=== PATIENT | female | born 1965 | race Caucasian/White ===

== ENCOUNTER 2020-03-05 09:51 | Inpatient (IN) ==
[2020-03-05 10:15] LABS: BASOPHILS % (AUTO) 0.3 % (0.2-1.0); HEMATOCRIT 39.5 % (36.0-47.0); HEMOGLOBIN 13.2 g/dL (12.0-16.0); LYMPHOCYTES # (AUTO) 0.5 X10^3/uL (1.3-2.9); LYMPHOCYTES % (AUTO) 8.6 % (21.0-51.0); MEAN CORPUSCULAR HEMOGLOBIN 28.6 pg (27.0-34.0); MEAN CORPUSCULAR HGB CONC 33.4 g/dL (33.0-35.0); MEAN CORPUSCULAR VOLUME 85.7 fL (80.0-100.0); MEAN PLATELET VOLUME 7.4 fL (7.4-11.0); MONOCYTES # (AUTO) 0.1 x10^3/uL (0.3-0.8); MONOCYTES % (AUTO) 1.8 % (0.0-13.0); NEUTROPHILS # (AUTO) 5.3 x10^3/uL (2.2-4.8); NEUTROPHILS % (AUTO) 89.3 % (42.0-75.0); PLATELET COUNT 317 X10^3/uL (150.0-450.0); RED BLOOD COUNT 4.61 X10^6/uL (3.5-5.4); RED CELL DISTRIBUTION WIDTH 14.3 % (11.6-16.5); WHITE BLOOD COUNT 5.9 X10^3/uL (3.6-10.0)
[2020-03-05 10:23] LABS: ALBUMIN 2.8 g/dL (3.4-5.0); CALCIUM 9.5 mg/dL (8.5-10.1); CARBON DIOXIDE 22.7 mmol/L (21-32); COR CA(FOR HYPOALB) 10.5 mg/dL (8.5-10.1); CREATININE 1.24 mg/dL (0.55-1.02); TOTAL PROTEIN 8.4 g/dL (6.4-8.2)
[2020-03-05 10:24] LABS: ABG BASE EXCESS -8.7 mmol/L (-2.0-2.0)
[2020-03-05 10:25] LABS: ABG ALLEN TEST POS; ABG HCO3 14.5 mmol/L (22-26)
[2020-03-05] MEDS ORDERED: NS 1000 ML 1,000 ML IV ONE (10:42)
--- NOTE | 2020-03-05 10:44 | RAD ---
HISTORYShortness of breath, COVID-19STUDYChest AP portableCOMPARISONNoneFINDINGSThe heart is enlarged. No congestive heart failure is noted. Peripheral ground-glass infiltrates are present in the right upper lobe, right lower lobe, and peripherally in the left lung base. Findings are consistent with multifocal pneumonia which could be bacterial, viral, or atypical viral in etiology. COVID19 lung involvement can have this appearance. No pleural effusions are identified. Bony thorax is unremarkable.IMPRESSIONBilateral peripheral ground-glass infiltrates as described consistent with multifocal pneumonia. COVID 19 lung involvement can have this appearanceCardiomegaly without congestive heart failureElectronically signed by: RAJESH AGUILAR (Mar 05, 2020 10:43:24)
--- NOTE | 2020-03-05 10:51 | DR.SOBA ---
HPI Time Seen Time Seen by Provider: 03/05/20 10:28 HPI Comment HPI Comment: 54 yo f w/ hx of DM II and ckd. Recently seen at [facility] and treated for likely covid 19. Seen by pcp and given outpatient course of azithromycin and subsequent IM azithromycin dose. Seen in their ER and admitted 02/28/20. CTA of chest at that time w/ evidence of multifocal infiltrate. Started on iv azithro/ Rocephin. Covid 19 swab + at that time. Given steroid course. She symptomatically improved and was sent home. Represents for worsening SOB. Was not DC'd on home o2. Due to her SOB she obtained oxygen an arrived to ED today with 1L via [place]. Reviewed Nurses Notes Reviewed: Yes Source History Provided: Patient Mode of Arrival Mode of Arrival: Ambulatory Timing Onset of Chief Complaint: 02/18/20 Duration Duration: Weeks Context Onset:: At Rest PE Risk Factors:: None History of:: denies Asthma, COPD, CHF and DVT/PE Currently on:: Neither Prehospital Care:: O2 Modifying Factors Worsens:: Nothing Improves:: Nothing Associated Signs and Symptoms Associated Signs and Symptoms: Fever, Cough, Nasal Congestion and Chest Pain; denies Wheeze, Sore Throat, Hemoptysis, Calf Pain, Anxiety and Numbness If Cough Cough: Nonproductive PMH PMH Past Medical History: Hypothyroidism Past Medical History Comment: dm, htn, ckd stage 3 Past Surgical History: Yes Surgical History: Cholecystectomy and Hysterectomy Past Surgical History Comment: lithotripsy Family History History of Family Medical Conditions: No Social History Does patient currently use any type of tobacco product: No Does any household member use tobacco: No Do you use any recreational Drugs:: No ROS Review of Systems Constitutional: Chills, Fever and Fatigue Eyes: No Symptoms Reported ENTM: No Symptoms Reported Respiratoy: Non-Productive Cough and Short of Breath Cardiovascular: No Symptoms Reported Gastrointestinal/Abdominal: No Symptoms Reported Genitourinary: No Symptoms Reported Neurological: No Symptoms Reported Musculoskeletal: No Symptoms Reported Integumentary: No Symptoms Reported Hematologic/Lymphatic: No Symptoms Reported Endocrine: No Symptoms Reported Psychiatric: No Symptoms Reported All Other Systems: Reviewed and Negative PE Vital Signs Vitals: Temperature 97.6 F Pulse Rate 75 Respiratory Rate 34 Blood Pressure 167/78 O2 Sat by Pulse Oximetry 90 General Limitations: No Limitations General Appearance: Alert and In Distress (mild rd) Head Head Exam: Normal Inspection Eyes Eye exam: Normal Appearance ENT ENT Exam: Normal Exam Neck Neck Exam: Normal Inspection Chest Chest Inspection: Normal Inspection Respiratory Respiratory Exam: Respiratory Distress (mild rd); negative Accessory Muscle Use Respiratory Exam: Bilateral: Rhonchi Cardiovascular Cardiovascular Exam: Regular Rate and Normal Rhythm Abdominal Exam Abdominal Exam: Normal Inspection, Normal Bowel Sounds and Soft Extremities Extremities Exam: Normal Inspection Back Back Exam: Normal Inspection Neurologic Neurological Exam: Alert and Oriented X3 Psychiatric Psychiatric Exam: Normal Affect and Normal Mood Skin Skin Exam: Warm, Dry, Intact and Normal Color MDM Differential Diagnosis Differential Diagnosis: Asthma, Bronchitis, CHF, COPD, Pneumonia, Pneumothorax, Pulmonary embolism, Respiratory Failure and URI Differential Diagnosis Comment:: covid 19 COURSE Treatment Treatment: 54 yo f w/ hx of DM II and ckd. Recently seen at [facility] and treated for likely covid 19. Seen by pcp and given outpatient course of azithromycin and subsequent IM azithromycin dose. Seen in their ER and admitted 02/28/20. CTA of chest at that time w/ evidence of multifocal infiltrate. Started on iv azithro/ Rocephin. Covid 19 swab + at that time. Given steroid course. She symptomatically improved and was sent home. Represents for worsening SOB. Was not DC'd on home o2. Due to her SOB she obtained oxygen an arrived to ED today with 1L via [place]. On arrival to ED she was noted to be hypoxic with pulse ox in 86% range. ABG w/ evidence of hypoxemia. CBC w/ noted lymphopenia. No acidosis on cmp. Markedly elevated CRP. CXR w/ multifocal infiltrate. ROR Labs Reviewed Laboratory Results Reviewed?: Yes Result Diagrams: 03/05/20 10:07 03/05/20 10:07 Laboratory: WBC 5.9 X10^3/uL (3.6-10.0) 03/05/20 10:07 RBC 4.61 X10^6/uL (3.5-5.4) 03/05/20 10:07 Hgb 13.2 g/dL (12.0-16.0) 03/05/20 10:07 Hct 39.5 % (36.0-47.0) 03/05/20 10:07 MCV 85.7 fL (80.0-100.0) 03/05/20 10:07 MCH 28.6 pg (27.0-34.0) 03/05/20 10:07 MCHC 33.4 g/dL (33.0-35.0) 03/05/20 10:07 RDW 14.3 % (11.6-16.5) 03/05/20 10:07 Plt Count 317 X10^3/uL (150.0-450.0) 03/05/20 10:07 MPV 7.4 fL (7.4-11.0) 03/05/20 10:07 Neut % (Auto) 89.3 % (42.0-75.0) H 03/05/20 10:07 Lymph % (Auto) 8.6 % (21.0-51.0) L 03/05/20 10:07 [place] % (Auto) 1.8 % (0.0-13.0) 03/05/20 10:07 Eos % (Auto) 0.0 % (0.9-2.9) L 03/05/20 10:07 Baso % (Auto) 0.3 % (0.2-1.0) 03/05/20 10:07 Neut # (Auto) 5.3 x10^3/uL (2.2-4.8) H 03/05/20 10:07 Lymph # (Auto) 0.5 X10^3/uL (1.3-2.9) L 03/05/20 10:07 [place] # (Auto) 0.1 x10^3/uL (0.3-0.8) L 03/05/20 10:07 Eos # (Auto) 0.0 x10^3/uL (0.0-0.2) 03/05/20 10:07 Baso # (Auto) 0.0 X10^3/uL (0.0-0.1) 03/05/20 10:07 Absolute Nucleated RBC 0.0 /100WBC 03/05/20 10:07 Sample Site Rr 03/05/20 10:19 ABG pH 7.390 (7.35-7.45) 03/05/20 10:19 ABG pCO2 24.0 mmHg (35.0-45.0) L 03/05/20 10:19 ABG pO2 54.0 mmHg (80.0-100.0) L 03/05/20 10:19 ABG HCO3 14.5 mmol/L (22-26) L* 03/05/20 10:19 ABG O2 Saturation 87.0 % (90-100) L 03/05/20 10:19 ABG Base Excess -8.7 mmol/L (-2.0-2.0) L 03/05/20 10:19 Dannie Test Pos 03/05/20 10:19 A-a Gradient 66.0 mmHg 03/05/20 10:19 FiO2 21.0 03/05/20 10:19 Blood Gas Comments Sara well cb 03/05/20 10:19 Sodium 134 mmol/L (136-145) L 03/05/20 10:07 Corrected Sodium 140 mmol/L (136-145) 03/05/20 10:07 Potassium 4.5 mmol/L (3.5-5.1) 03/05/20 10:07 Chloride 96 mmol/L (98-107) L 03/05/20 10:07 Carbon Dioxide 22.7 mmol/L (21-32) 03/05/20 10:07 BUN 17 mg/dL (7-18) 03/05/20 10:07 Creatinine 1.24 mg/dL (0.55-1.02) H 03/05/20 10:07 Est GFR (MDRD) Af Amer 58 (>60) L 03/05/20 10:07 Est GFR (MDRD) Non-Af 48 (>60) L 03/05/20 10:07 Glucose 331 mg/dL (65-99) H 03/05/20 10:07 Lactic Acid 1.8 mmol/L (0.4-2.0) 03/05/20 10:47 Calcium 9.5 mg/dL (8.5-10.1) 03/05/20 10:07 Corrected Calcium 10.5 mg/dL (8.5-10.1) H 03/05/20 10:07 Ferritin 1266 ng/mL (8-252) H 03/05/20 10:07 Total Bilirubin 0.50 mg/dL (0.2-1.0) 03/05/20 10:07 AST 57 Units/L (15-37) H 03/05/20 10:07 ALT 71 Units/L (12-78) 03/05/20 10:07 Alkaline Phosphatase 245 Units/L (46-116) H 03/05/20 10:07 Lactate Dehydrogenase 470 Units/L (81-234) H 03/05/20 10:07 C-Reactive Protein 459.30 mg/L (0-3.0) H 03/05/20 10:07 Total Protein 8.4 g/dL (6.4-8.2) H 03/05/20 10:07 Albumin 2.8 g/dL (3.4-5.0) L 03/05/20 10:07 Globulin 5.6 g/dL (2.5-4.5) H 03/05/20 10:07 Albumin/Globulin Ratio 0.5 Ratio (1.1-2.1) L 03/05/20 10:07 EKG Rate: 81 [place]: LAD Rhythm: NSR Block: None Hypertrophy: None ST: Normal Opioid Opioid Risk Tool Total: 0 Total Score Risk Category: Low Risk Copyright: Anuj GABRIEL predicting aberrant behaviors Diagnosis Discharge Problem: Healthcare-associated pneumonia, COVID-19 Sepsis Qualifiers: Sepsis type: sepsis due to unspecified organism Sepsis acute organ dysfunction status: without acute organ dysfunction Qualified Code(s): A41.9 - Sepsis, unspecified organism
[2020-03-05] MEDS ORDERED: NS 1000 ML 1,000 ML ONE (11:02)
[2020-03-05 11:26] VITALS: BMI 34.7
[2020-03-05] MEDS ORDERED: DECADRON INJ PRESERVATIVE-FREE IVP ONE (11:32)
[2020-03-05] MEDS ORDERED: TYGACIL 50 MG VIAL 100 MG in NS 100 ML IV 100 ML IV ONE (11:58)
[2020-03-05] MEDS ORDERED: PHARMACY CONSULT - VANCOMYCIN XX SCH (12:00)
[2020-03-05] MEDS ORDERED: DECADRON INJ ONE (12:12)
[2020-03-05] MEDS: ASCORBIC ACID INJ MULTI-DOSE VIAL 1,500 MG in NS 100 ML IV 100 ML IV SCH ×2 (15:05→20:07)
[2020-03-05] MEDS: VANCOMYCIN IV *PREMIX 1 G/200 ML BAG 1 G/200 ML PIGGYBACK IV SCH ×2 (16:00→22:26)
[2020-03-05] MEDS: HumaLOG SC PRN ×2 (17:08→21:02)
[2020-03-05] MEDS: NS 1000 ML 1,000 ML IV SCH (17:17)
[2020-03-05] MEDS: DUONEB 0.5 MG/3 MG (3 mL) NEB SCH ×2 (17:30→21:38)
[2020-03-05] MEDS ORDERED: AMARYL TAB 4 MG ONE (19:41)
[2020-03-05] MEDS ORDERED: ZINC SULFATE ONE (19:42)
[2020-03-05] MEDS ORDERED: TYGACIL 50 MG VIAL IV ONE (19:42)
[2020-03-05] MEDS ORDERED: PLAQUENIL ONE (19:42)
[2020-03-05] MEDS ORDERED: VANCOMYCIN 1 GRAM PREMIX (ADDVANTAGE) 250 ML IV ONE (19:43)
[2020-03-05] MEDS ORDERED: LOVENOX INJ 30 MG SYR SC ONE (19:45)
[2020-03-05] MEDS ORDERED: NS 100 ML IV + SPIKE MINIBAG* 100 ML IV ONE (19:48)
[2020-03-05] MEDS: AMARYL TAB 4 MG PO SCH (20:04)
[2020-03-05] MEDS: ZOCOR TAB 40 MG PO ONE ×2 (20:04→20:09)
[2020-03-05] MEDS: PLAQUENIL PO SCH (20:05)
[2020-03-05] MEDS: ZINC SULFATE PO SCH (20:06)
[2020-03-05] MEDS: LOVENOX INJ 30 MG SYR SC SCH (20:06)
[2020-03-05] MEDS: ZOCOR TAB 20 MG PO SCH (20:08)
[2020-03-05] MEDS: TYGACIL 50 MG VIAL 50 MG in NS 100 ML IV 100 ML IV SCH (21:03)
[2020-03-05] MEDS: PULMICORT NEB TX 0.5 MG NEB SCH (21:38)
[2020-03-05] MEDS: MUCOMYST (RESPIRATORY USE ONLY) NEB SCH (21:38)
[2020-03-06] MEDS: ASCORBIC ACID INJ MULTI-DOSE VIAL 1,500 MG in NS 100 ML IV 100 ML IV SCH ×4 (03:01→20:58)
[2020-03-06 03:47] LABS: BILIRUBIN,URINE NEGATIVE (NEGATIVE); BLOOD/HEMOGLOBIN,URINE NEGATIVE (NEGATIVE); GLUCOSE, URINE 2+ (NEGATIVE); KETONES,URINE 3+ (NEGATIVE); LEUKOCYTE ESTERASE ,URINE NEGATIVE (NEGATIVE); NITRITES,URINE NEGATIVE (NEGATIVE); PROTEIN,URINE 2+ (NEGATIVE); UROBILINOGEN,URINE NORMAL (NORMAL)
[2020-03-06 03:57] LABS: APPEARANCE,URINE CLEAR (CLEAR); BACTERIA,URINE TRACE /HPF (NEGATIVE); COLOR,URINE YELLOW (YELLOW); RBC,URINE NONE SEEN /HPF (0-3); SQUAMOUS EPITHELIAL CELL,UR RARE /HPF (NEGATIVE)
[2020-03-06] MEDS ORDERED: VANCOMYCIN 1 GRAM PREMIX (ADDVANTAGE) 250 ML IV ONE (05:50)
[2020-03-06] MEDS: VANCOMYCIN IV *PREMIX 1 G/200 ML BAG 1 G/200 ML PIGGYBACK IV SCH ×2 (06:17→16:51)
[2020-03-06] MEDS: HumaLOG SC PRN (06:28)
[2020-03-06] MEDS: PULMICORT NEB TX 0.5 MG NEB SCH ×2 (08:25→21:50)
[2020-03-06] MEDS: DUONEB 0.5 MG/3 MG (3 mL) NEB SCH ×4 (08:25→21:50)
[2020-03-06] MEDS: MUCOMYST (RESPIRATORY USE ONLY) NEB SCH ×2 (08:25→21:50)
[2020-03-06] MEDS ORDERED: ZOLOFT PO ONE (08:39)
[2020-03-06] MEDS: AMARYL TAB 4 MG PO SCH (08:53)
[2020-03-06] MEDS ORDERED: VITAMIN D (1.25MG) PO SCH (09:00)
[2020-03-06] MEDS ORDERED: PATIENT'S HOME MEDICATION (Valsartan-Hydrochlorothiazide 1 TAB) PO SCH (09:00)
[2020-03-06] MEDS ORDERED: VITAMIN A PO SCH (09:00)
[2020-03-06] MEDS: DECADRON TAB PO SCH (09:03)
[2020-03-06] MEDS: TRICOR TAB 160 MG PO SCH (09:04)
[2020-03-06] MEDS: DIOVAN TAB 160 MG PO SCH (09:04)
[2020-03-06] MEDS: HYDROCHLOROTHIAZIDE 25 MG TAB PO SCH (09:04)
[2020-03-06] MEDS: PLAQUENIL PO SCH ×2 (09:05→20:59)
[2020-03-06] MEDS: LOVENOX INJ 30 MG SYR SC SCH ×2 (09:05→20:58)
[2020-03-06] MEDS: VITAMIN D (1.25MG) PO SCH (09:06)
[2020-03-06] MEDS: ZOLOFT PO SCH (09:07)
[2020-03-06] MEDS: ZINC SULFATE PO SCH ×2 (09:07→20:59)
[2020-03-06] MEDS: VICTOZA SC SCH (09:15)
[2020-03-06] MEDS: TYGACIL 50 MG VIAL 50 MG in NS 100 ML IV 100 ML IV SCH ×2 (12:35→21:00)
[2020-03-06] MEDS: ACTOS PO SCH (16:52)
[2020-03-06] MEDS: NS 1000 ML 1,000 ML IV SCH (16:58)
[2020-03-06] MEDS ORDERED: ZOFRAN INJ 4 MG VIAL IVP PRN (18:42)
[2020-03-06] MEDS ORDERED: TYGACIL 50 MG VIAL IV ONE (20:26)
[2020-03-06] MEDS ORDERED: NS 100 ML IV + SPIKE MINIBAG* 100 ML IV ONE (20:48)
[2020-03-06] MEDS: ZOCOR TAB 20 MG PO SCH (20:59)
[2020-03-06 23:08] LABS: CREATININE 1.31 mg/dL (0.55-1.02)
[2020-03-07] MEDS: VANCOMYCIN IV *PREMIX 1 G/200 ML BAG 1 G/200 ML PIGGYBACK IV SCH ×2 (01:17→06:03)
[2020-03-07] MEDS: ASCORBIC ACID INJ MULTI-DOSE VIAL 1,500 MG in NS 100 ML IV 100 ML IV SCH ×4 (03:30→20:49)
[2020-03-07 06:00] LABS: ALANINE AMINOTRANSFERASE 50 Units/L (12-78); ALBUMIN 2.4 g/dL (3.4-5.0); ALKALINE PHOSPHATASE 168 Units/L (46-116); ASPARTATE AMINO TRANSFERASE 43 Units/L (15-37); BLOOD UREA NITROGEN 30 mg/dL (7-18); CALCIUM 8.3 mg/dL (8.5-10.1); CARBON DIOXIDE 22.2 mmol/L (21-32); CHLORIDE 100 mmol/L (98-107); COR CA(FOR HYPOALB) 9.6 mg/dL (8.5-10.1); COR NA(FOR HYPERGLY) 135 mmol/L (136-145); CREATININE 1.17 mg/dL (0.55-1.02); SODIUM 134 mmol/L (136-145); TOTAL PROTEIN 6.8 g/dL (6.4-8.2); eGFR NON BLACK RACES 51 (>60)
[2020-03-07] MEDS ORDERED: PHARMACY CONSULT - VANCOMYCIN XX SCH (06:17)
[2020-03-07 06:23] LABS: BASOPHILS % (AUTO) 0.4 % (0.2-1.0); EOSINOPHILS % (AUTO) 0.1 % (0.9-2.9); HEMATOCRIT 32.6 % (36.0-47.0); HEMOGLOBIN 11.2 g/dL (12.0-16.0); LYMPHOCYTES # (AUTO) 0.8 X10^3/uL (1.3-2.9); MEAN CORPUSCULAR HEMOGLOBIN 30.9 pg (27.0-34.0); MEAN CORPUSCULAR HGB CONC 34.3 g/dL (33.0-35.0); MEAN PLATELET VOLUME 7.2 fL (7.4-11.0); MONOCYTES # (AUTO) 0.2 x10^3/uL (0.3-0.8); MONOCYTES % (AUTO) 5.8 % (0.0-13.0); NEUTROPHILS % (AUTO) 73.7 % (42.0-75.0); PLATELET COUNT 385 X10^3/uL (150.0-450.0); RED BLOOD COUNT 3.62 X10^6/uL (3.5-5.4); RED CELL DISTRIBUTION WIDTH 14.6 % (11.6-16.5); WHITE BLOOD COUNT 4.1 X10^3/uL (3.6-10.0)
[2020-03-07] MEDS: DUONEB 0.5 MG/3 MG (3 mL) NEB SCH ×4 (08:30→21:19)
[2020-03-07] MEDS: MUCOMYST (RESPIRATORY USE ONLY) NEB SCH ×2 (08:30→21:20)
[2020-03-07] MEDS: PULMICORT NEB TX 0.5 MG NEB SCH ×2 (08:30→21:20)
[2020-03-07] MEDS ORDERED: ZOLOFT PO ONE (09:12)
[2020-03-07] MEDS: TRICOR TAB 160 MG PO SCH (09:47)
[2020-03-07] MEDS: HYDROCHLOROTHIAZIDE 25 MG TAB PO SCH (09:47)
[2020-03-07] MEDS: DECADRON TAB PO SCH (09:48)
[2020-03-07] MEDS: DIOVAN TAB 160 MG PO SCH (09:48)
[2020-03-07] MEDS: ACTOS PO SCH (09:49)
[2020-03-07] MEDS: ZOLOFT PO SCH (09:50)
[2020-03-07] MEDS: VITAMIN D3 125 mcg (5,000 UNITS) PO SCH (09:50)
[2020-03-07] MEDS: PLAQUENIL PO SCH ×2 (09:50→20:50)
[2020-03-07] MEDS: VITAMIN A PO SCH (09:50)
[2020-03-07] MEDS: VITAMIN D (1.25MG) PO SCH (09:51)
[2020-03-07] MEDS: ZINC SULFATE PO SCH ×2 (09:52→20:50)
[2020-03-07] MEDS: LOVENOX INJ 30 MG SYR SC SCH ×2 (09:52→20:49)
[2020-03-07] MEDS: VANCOMYCIN HCL 250 MG, VANCOMYCIN HCL 1 G in D5W 250 ML IV 250 ML IV SCH ×2 (09:53→21:00)
[2020-03-07] MEDS: VICTOZA SC SCH (09:54)
[2020-03-07] MEDS: TYGACIL 50 MG VIAL 50 MG in NS 100 ML IV 100 ML IV SCH ×2 (11:05→22:30)
[2020-03-07] MEDS ORDERED: TYLENOL 325 MG TAB PO ONE (11:45)
[2020-03-07] MEDS: HumaLOG SC PRN ×2 (16:33→23:45)
[2020-03-07] MEDS: NS 1000 ML 1,000 ML IV SCH (20:48)
[2020-03-07] MEDS: ZOCOR TAB 20 MG PO SCH (20:51)
[2020-03-08] MEDS: ASCORBIC ACID INJ MULTI-DOSE VIAL 1,500 MG in NS 100 ML IV 100 ML IV SCH ×4 (03:30→22:10)
[2020-03-08] MEDS: HumaLOG SC PRN ×3 (06:10→22:00)
[2020-03-08] MEDS: DUONEB 0.5 MG/3 MG (3 mL) NEB SCH ×4 (09:00→20:20)
[2020-03-08] MEDS: PULMICORT NEB TX 0.5 MG NEB SCH ×2 (09:00→20:20)
[2020-03-08] MEDS: MUCOMYST (RESPIRATORY USE ONLY) NEB SCH ×2 (09:00→20:20)
[2020-03-08] MEDS ORDERED: ZOLOFT PO ONE (10:31)
[2020-03-08] MEDS: ACTOS PO SCH (10:34)
[2020-03-08] MEDS: ZINC SULFATE PO SCH ×2 (10:34→22:00)
[2020-03-08] MEDS: ZOLOFT PO SCH (10:35)
[2020-03-08] MEDS: VITAMIN A PO SCH (10:35)
[2020-03-08] MEDS: HYDROCHLOROTHIAZIDE 25 MG TAB PO SCH (10:35)
[2020-03-08] MEDS: TRICOR TAB 160 MG PO SCH (10:36)
[2020-03-08] MEDS: VITAMIN D3 125 mcg (5,000 UNITS) PO SCH (10:36)
[2020-03-08] MEDS: LOVENOX INJ 30 MG SYR SC SCH ×2 (10:37→22:00)
[2020-03-08] MEDS: PLAQUENIL PO SCH ×2 (10:37→22:00)
[2020-03-08] MEDS: DIOVAN TAB 160 MG PO SCH (10:38)
[2020-03-08] MEDS: DECADRON TAB PO SCH (10:38)
[2020-03-08] MEDS: VANCOMYCIN HCL 250 MG, VANCOMYCIN HCL 1 G in D5W 250 ML IV 250 ML IV SCH (10:48)
[2020-03-08] MEDS: VITAMIN D (1.25MG) PO SCH (10:48)
[2020-03-08] MEDS: TYGACIL 50 MG VIAL 50 MG in NS 100 ML IV 100 ML IV SCH ×2 (10:54→22:47)
[2020-03-08] MEDS: VICTOZA SC SCH (11:02)
[2020-03-08] MEDS: NS 1000 ML 1,000 ML IV SCH (19:09)
[2020-03-08 20:14] LABS: CREATININE 1.29 mg/dL (0.55-1.02); VANCOMYCIN,TROUGH 15.6 ug/mL (15-20)
[2020-03-08] MEDS ORDERED: PHARMACY COMMENT IV NR (20:30)
[2020-03-08] MEDS ORDERED: HumaLOG SC ONE (20:33)
[2020-03-08] MEDS: ZOCOR TAB 20 MG PO SCH (22:00)
[2020-03-09] MEDS: VANCOMYCIN HCL 250 MG, VANCOMYCIN HCL 1 G in D5W 250 ML IV 250 ML IV SCH ×3 (00:10→20:40)
[2020-03-09] MEDS: ASCORBIC ACID INJ MULTI-DOSE VIAL 1,500 MG in NS 100 ML IV 100 ML IV SCH ×4 (02:15→22:45)
[2020-03-09 05:47] LABS: BASOPHILS % (AUTO) 0.2 % (0.2-1.0); HEMATOCRIT 33.1 % (36.0-47.0); HEMOGLOBIN 11.2 g/dL (12.0-16.0); LYMPHOCYTES # (AUTO) 0.7 X10^3/uL (1.3-2.9); LYMPHOCYTES % (AUTO) 13.7 % (21.0-51.0); MEAN CORPUSCULAR HEMOGLOBIN 28.7 pg (27.0-34.0); MEAN CORPUSCULAR VOLUME 84.4 fL (80.0-100.0); MEAN PLATELET VOLUME 7.3 fL (7.4-11.0); MONOCYTES # (AUTO) 0.5 x10^3/uL (0.3-0.8); MONOCYTES % (AUTO) 8.5 % (0.0-13.0); NEUTROPHILS # (AUTO) 4.1 x10^3/uL (2.2-4.8); NEUTROPHILS % (AUTO) 77.6 % (42.0-75.0); PLATELET COUNT 482 X10^3/uL (150.0-450.0); RED BLOOD COUNT 3.92 X10^6/uL (3.5-5.4); RED CELL DISTRIBUTION WIDTH 14.1 % (11.6-16.5); WHITE BLOOD COUNT 5.3 X10^3/uL (3.6-10.0)
[2020-03-09] MEDS: HumaLOG SC PRN ×3 (06:04→20:35)
[2020-03-09 06:05] LABS: BAND NEUTROPHILS % 4 % (0-10); PLATELET MORPHOLOGY COMMENT NORMAL (NORMAL)
[2020-03-09 06:06] LABS: ALANINE AMINOTRANSFERASE 40 Units/L (12-78); ALBUMIN 2.4 g/dL (3.4-5.0); ALKALINE PHOSPHATASE 156 Units/L (46-116); ASPARTATE AMINO TRANSFERASE 23 Units/L (15-37); BLOOD UREA NITROGEN 30 mg/dL (7-18); CALCIUM 8.5 mg/dL (8.5-10.1); CARBON DIOXIDE 24.3 mmol/L (21-32); CHLORIDE 98 mmol/L (98-107); COR CA(FOR HYPOALB) 9.8 mg/dL (8.5-10.1); COR NA(FOR HYPERGLY) 136 mmol/L (136-145); CREATININE 1.06 mg/dL (0.55-1.02); SODIUM 132 mmol/L (136-145); TOTAL PROTEIN 6.8 g/dL (6.4-8.2); eGFR NON BLACK RACES 57 (>60)
[2020-03-09] MEDS ORDERED: ZOLOFT PO ONE (08:16)
[2020-03-09] MEDS: DUONEB 0.5 MG/3 MG (3 mL) NEB SCH ×4 (09:20→20:50)
[2020-03-09] MEDS: MUCOMYST (RESPIRATORY USE ONLY) NEB SCH ×2 (09:20→20:50)
[2020-03-09] MEDS: PULMICORT NEB TX 0.5 MG NEB SCH ×2 (09:20→20:50)
[2020-03-09] MEDS: ACTOS PO SCH (09:50)
[2020-03-09] MEDS: DECADRON TAB PO SCH (09:51)
[2020-03-09] MEDS: HYDROCHLOROTHIAZIDE 25 MG TAB PO SCH (09:52)
[2020-03-09] MEDS: DIOVAN TAB 160 MG PO SCH (09:52)
[2020-03-09] MEDS: LOVENOX INJ 30 MG SYR SC SCH ×2 (09:53→20:40)
[2020-03-09] MEDS: ZINC SULFATE PO SCH ×2 (09:54→20:40)
[2020-03-09] MEDS: VITAMIN D3 125 mcg (5,000 UNITS) PO SCH (09:54)
[2020-03-09] MEDS: PLAQUENIL PO SCH ×2 (09:55→20:40)
[2020-03-09] MEDS: VITAMIN A PO SCH (09:55)
[2020-03-09] MEDS: VICTOZA SC SCH (09:56)
[2020-03-09] MEDS: TRICOR TAB 160 MG PO SCH (09:56)
[2020-03-09] MEDS: ZOLOFT PO SCH (09:57)
[2020-03-09] MEDS: TYGACIL 50 MG VIAL 50 MG in NS 100 ML IV 100 ML IV SCH ×2 (09:58→23:20)
[2020-03-09] MEDS: VITAMIN D (1.25MG) PO SCH (10:14)
[2020-03-09] MEDS: NS 1000 ML 1,000 ML IV SCH (19:22)
[2020-03-09] MEDS: ZOCOR TAB 20 MG PO SCH (20:40)
[2020-03-10] MEDS: ASCORBIC ACID INJ MULTI-DOSE VIAL 1,500 MG in NS 100 ML IV 100 ML IV SCH ×4 (02:18→22:00)
[2020-03-10] MEDS: NS 1000 ML 1,000 ML IV SCH ×2 (05:45→12:26)
[2020-03-10] MEDS: HumaLOG SC PRN ×4 (06:33→22:11)
[2020-03-10] MEDS ORDERED: ZOLOFT PO ONE (08:04)
[2020-03-10] MEDS: ACTOS PO SCH (08:30)
[2020-03-10] MEDS: VICTOZA SC SCH (08:30)
[2020-03-10] MEDS: VITAMIN D (1.25MG) PO SCH (08:30)
[2020-03-10] MEDS: PLAQUENIL PO SCH ×2 (08:30→21:00)
[2020-03-10] MEDS: HYDROCHLOROTHIAZIDE 25 MG TAB PO SCH (08:30)
[2020-03-10] MEDS: TRICOR TAB 160 MG PO SCH (08:30)
[2020-03-10] MEDS: TYGACIL 50 MG VIAL 50 MG in NS 100 ML IV 100 ML IV SCH (08:30)
[2020-03-10] MEDS: LOVENOX INJ 30 MG SYR SC SCH ×2 (08:30→22:00)
[2020-03-10] MEDS: VITAMIN A PO SCH (08:30)
[2020-03-10] MEDS: DECADRON TAB PO SCH (08:30)
[2020-03-10] MEDS: DIOVAN TAB 160 MG PO SCH (08:30)
[2020-03-10] MEDS: ZINC SULFATE PO SCH ×2 (08:30→22:10)
[2020-03-10] MEDS: ZOLOFT PO SCH (08:30)
[2020-03-10] MEDS: VITAMIN D3 125 mcg (5,000 UNITS) PO SCH (08:30)
[2020-03-10] MEDS: DUONEB 0.5 MG/3 MG (3 mL) NEB SCH ×4 (08:40→21:32)
[2020-03-10] MEDS: MUCOMYST (RESPIRATORY USE ONLY) NEB SCH ×2 (08:40→21:32)
[2020-03-10] MEDS: PULMICORT NEB TX 0.5 MG NEB SCH ×2 (08:40→21:32)
[2020-03-10] MEDS: VANCOMYCIN HCL 250 MG, VANCOMYCIN HCL 1 G in D5W 250 ML IV 250 ML IV SCH (08:45)
--- NOTE | 2020-03-10 13:15 | RAD ---
HISTORYSOB, COVID +STUDYCHEST, 1 [id number] areas of opacity in the lateral lung bases compatible with pneumonia. There may be slight improvement in the upper right lung but progression in the lower left lung. No pleural effusion or pneumothorax.The heart size is magnified.Bones are unremarkable.Fixation hardware in the cervical spine.IMPRESSIONBilateral pneumoniaElectronically signed by: Toribio Lugo (Mar 10, 2020 13:15:18)
[2020-03-10] MEDS: ZOCOR TAB 20 MG PO SCH (22:10)
[2020-03-11] MEDS: ASCORBIC ACID INJ MULTI-DOSE VIAL 1,500 MG in NS 100 ML IV 100 ML IV SCH ×4 (04:00→21:00)
[2020-03-11 05:21] LABS: BASOPHILS # (AUTO) 0.1 X10^3/uL (0.0-0.1); HEMATOCRIT 34.7 % (36.0-47.0); HEMOGLOBIN 11.9 g/dL (12.0-16.0); LYMPHOCYTES # (AUTO) 0.9 X10^3/uL (1.3-2.9); LYMPHOCYTES % (AUTO) 12.1 % (21.0-51.0); MEAN CORPUSCULAR HEMOGLOBIN 28.5 pg (27.0-34.0); MEAN CORPUSCULAR HGB CONC 34.2 g/dL (33.0-35.0); MEAN CORPUSCULAR VOLUME 83.4 fL (80.0-100.0); MONOCYTES # (AUTO) 0.5 x10^3/uL (0.3-0.8); MONOCYTES % (AUTO) 7.1 % (0.0-13.0); NEUTROPHILS # (AUTO) 6.1 x10^3/uL (2.2-4.8); NEUTROPHILS % (AUTO) 79.8 % (42.0-75.0); PLATELET COUNT 633 X10^3/uL (150.0-450.0); RED BLOOD COUNT 4.17 X10^6/uL (3.5-5.4); RED CELL DISTRIBUTION WIDTH 14.1 % (11.6-16.5); WHITE BLOOD COUNT 7.6 X10^3/uL (3.6-10.0)
[2020-03-11 05:30] LABS: ALANINE AMINOTRANSFERASE 32 Units/L (12-78); ALBUMIN 2.4 g/dL (3.4-5.0); ALKALINE PHOSPHATASE 144 Units/L (46-116); ASPARTATE AMINO TRANSFERASE 18 Units/L (15-37); BLOOD UREA NITROGEN 36 mg/dL (7-18); CARBON DIOXIDE 26.3 mmol/L (21-32); CHLORIDE 98 mmol/L (98-107); COR CA(FOR HYPOALB) 10.3 mg/dL (8.5-10.1); COR NA(FOR HYPERGLY) 135 mmol/L (136-145); CREATININE 1.15 mg/dL (0.55-1.02); SODIUM 132 mmol/L (136-145); TOTAL PROTEIN 6.4 g/dL (6.4-8.2); eGFR NON BLACK RACES 52 (>60)
[2020-03-11 06:07] LABS: PLATELET MORPHOLOGY COMMENT NORMAL (NORMAL)
[2020-03-11] MEDS: HumaLOG SC PRN ×2 (06:44→17:21)
[2020-03-11] MEDS ORDERED: ZOLOFT PO ONE (07:49)
[2020-03-11] MEDS: ACTOS PO SCH (08:26)
[2020-03-11] MEDS: DIOVAN TAB 160 MG PO SCH (08:32)
[2020-03-11] MEDS: PLAQUENIL PO SCH ×2 (08:33→21:00)
[2020-03-11] MEDS: HYDROCHLOROTHIAZIDE 25 MG TAB PO SCH (08:33)
[2020-03-11] MEDS: LOVENOX INJ 30 MG SYR SC SCH ×2 (08:33→21:00)
[2020-03-11] MEDS: VICTOZA SC SCH (08:34)
[2020-03-11] MEDS: TRICOR TAB 160 MG PO SCH (08:34)
[2020-03-11] MEDS: VITAMIN D (1.25MG) PO SCH (08:35)
[2020-03-11] MEDS: VITAMIN A PO SCH (08:35)
[2020-03-11] MEDS: VITAMIN D3 125 mcg (5,000 UNITS) PO SCH (08:35)
[2020-03-11] MEDS: ZINC SULFATE PO SCH ×2 (08:36→21:00)
[2020-03-11] MEDS: ZOLOFT PO SCH (08:36)
[2020-03-11] MEDS: MUCOMYST (RESPIRATORY USE ONLY) NEB SCH ×2 (09:10→21:40)
[2020-03-11] MEDS: DUONEB 0.5 MG/3 MG (3 mL) NEB SCH ×4 (09:10→21:40)
[2020-03-11] MEDS: PULMICORT NEB TX 0.5 MG NEB SCH ×2 (09:10→21:40)
[2020-03-11] MEDS: NS 1000 ML 1,000 ML IV SCH (14:15)
[2020-03-11] MEDS: ZOCOR TAB 20 MG PO SCH (21:00)
[2020-03-12] MEDS: ASCORBIC ACID INJ MULTI-DOSE VIAL 1,500 MG in NS 100 ML IV 100 ML IV SCH ×2 (04:00→09:34)
[2020-03-12] MEDS: HumaLOG SC PRN (06:23)
[2020-03-12] MEDS: MUCOMYST (RESPIRATORY USE ONLY) NEB SCH (08:05)
[2020-03-12] MEDS: DUONEB 0.5 MG/3 MG (3 mL) NEB SCH (08:05)
[2020-03-12] MEDS: PULMICORT NEB TX 0.5 MG NEB SCH (08:05)
[2020-03-12] MEDS ORDERED: ZOLOFT PO ONE (09:17)
[2020-03-12] MEDS: ACTOS PO SCH (09:33)
[2020-03-12] MEDS: LOVENOX INJ 30 MG SYR SC SCH (09:34)
[2020-03-12] MEDS: DIOVAN TAB 160 MG PO SCH (09:34)
[2020-03-12] MEDS: VITAMIN A PO SCH (09:35)
[2020-03-12] MEDS: TRICOR TAB 160 MG PO SCH (09:35)
[2020-03-12] MEDS: PLAQUENIL PO SCH (09:35)
[2020-03-12] MEDS: VICTOZA SC SCH (09:35)
[2020-03-12] MEDS: VITAMIN D (1.25MG) PO SCH (09:35)
[2020-03-12] MEDS: VITAMIN D3 125 mcg (5,000 UNITS) PO SCH (09:36)
[2020-03-12] MEDS: ZOLOFT PO SCH (09:36)
[2020-03-12] MEDS: ZINC SULFATE PO SCH (09:36)
[2020-03-12 09:38] VITALS: BP 105/58
== END 2020-03-12 11:50 | disposition home or self-care (01) | DRG 177 ==
LOC: ER 09:51 → MED/SURG 11:56
PROVIDERS: ADMIT Obstetrics & Gynecology Obstetrics; ATTEND Obstetrics & Gynecology Obstetrics
DX: N18.3 Chronic kidney disease, stage 3 (moderate); J12.89 Other viral pneumonia; U07.1 COVID-19; I12.9 Hypertensive chronic kidney disease with stage 1 through stage 4 chronic kidney disease, or unspecified chronic kidney disease; E11.22 Type 2 diabetes mellitus with diabetic chronic kidney disease